=== PATIENT | male | born 1975 | race Caucasian/White ===

== ENCOUNTER 2022-01-17 15:25 | Emergency (ER) | payer OTHER ==
[2022-01-17 16:53] LABS: BILIRUBIN NEGATIVE (NEGATIVE); BLOOD NEGATIVE Ery/uL (NEGATIVE); CLARITY CLEAR (CLEAR); COLOR YELLOW (YELLOW); GLUCOSE (U) NORMAL (NORMAL); LEUKOCYTES NEGATIVE Leu/uL (NEGATIVE); NITRITE NEGATIVE (NEGATIVE); PROTEIN NEGATIVE (NEGATIVE); SPECIFIC GRAVITY >=1.030 (1.001-1.030); UROBILINOGEN 0.2 mg/dL (0.2-1.0)
[2022-01-17 17:02] LABS: EOSINOPHIL 2.4 % (0-5); LYMPHOCYTE 28.6 % (15-48); MCH 30.8 pg (25.0-31.0); MCHC 33.3 g/dL (32.0-36.0); MCV 92.3 fL (78.0-100.0); MONOCYTE 8.3 % (0-12); MPV 10.2 fL (6.0-9.5); NEUTROPHIL 59.3 % (41-80); NRBC 0; PLT 249 K/uL (150-400); RBC 5.85 M/uL (4.70-6.00); RDW 12.9 % (11.5-14.0); WBC 9.4 K/uL (4.0-10.5)
[2022-01-17 17:10] LABS: ALBUMIN 4.1 g/dL (3.4-5.0); BILIRUBIN - TOTAL 0.4 mg/dL (0.2-1.0); BUN/CREAT RATIO (CALC) 16.3 RATIO; CREATININE 0.92 mg/dL (0.67-1.17); GLOBULIN (CALCULATION) 3.3 g/dL; TOTAL PROTEIN 7.4 g/dL (6.4-8.2)
[2022-01-17] MEDS ORDERED: BACLOFEN 10MG T10 MG PO (19:02)
[2022-01-17] MEDS ORDERED: IBUPROFEN800 MG PO (19:02)
== END 2022-01-17 19:09 | disposition home or self-care (01) ==
LOC: FER 15:25
PROVIDERS: Nurse Practitioner Family
DX: R10.84 Generalized abdominal pain (principal); J45.909 Unspecified asthma, uncomplicated; F17.210 Nicotine dependence, cigarettes, uncomplicated; Z28.310 Unvaccinated for COVID-19; Z88.0 Allergy status to penicillin; Z88.8 Allergy status to other drugs, medicaments and biological substances
CPT/HCPCS: 36415; 80053; 81003; 85025; J1885; J2405; J7030; Q9967

== ENCOUNTER 2022-03-03 18:34 | Emergency (ER) | payer OTHER ==
[~2022-03-03 18:34] MED LIST: BACLOFEN 10MG T10 MG PO; IBUPROFEN800 MG PO
[2022-03-03 19:06] LABS: BASOPHIL 0.8 % (0-2); EOSINOPHIL 3.5 % (0-5); HCT 48.7 % (42.0-52.0); HGB 16.4 g/dl (13.2-18.0); LYMPHOCYTE 34.2 % (15-48); MCH 30.9 pg (25.0-31.0); MCHC 33.7 g/dL (32.0-36.0); MCV 91.7 fL (78.0-100.0); MONOCYTE 7.3 % (0-12); MPV 10.6 fL (6.0-9.5); NEUTROPHIL 53.8 % (41-80); NRBC 0; PLT 191 K/uL (150-400); RBC 5.31 M/uL (4.70-6.00); RDW 13.2 % (11.5-14.0); WBC 7.6 K/uL (4.0-10.5)
[2022-03-03 19:15] LABS: BILIRUBIN NEGATIVE (NEGATIVE); BLOOD NEGATIVE Ery/uL (NEGATIVE); CLARITY CLEAR (CLEAR); COLOR YELLOW (YELLOW); GLUCOSE (U) NORMAL (NORMAL); LEUKOCYTES NEGATIVE Leu/uL (NEGATIVE); NITRITE NEGATIVE (NEGATIVE); PROTEIN NEGATIVE (NEGATIVE); SPECIFIC GRAVITY >=1.030 (1.001-1.030); UROBILINOGEN 0.2 mg/dL (0.2-1.0)
[2022-03-03 19:28] LABS: ALBUMIN 3.8 g/dL (3.4-5.0); BILIRUBIN - TOTAL 0.2 mg/dL (0.2-1.0); BUN/CREAT RATIO (CALC) 13.3 RATIO; CREATININE 0.83 mg/dL (0.67-1.17); POTASSIUM 3.8 mmol/L (3.5-5.1); TOTAL PROTEIN 6.8 g/dL (6.4-8.2)
[2022-03-03 21:02] LABS: CORONAVIRUS 2019 SARS-COV-2 NEGATIVE (NEGATIVE); INFLUENZA A NAA NEGATIVE (NEGATIVE)
[2022-03-03] MEDS ORDERED: NORCO 5-325 TA1 EACH PO (22:03)
[2022-03-03] MEDS ORDERED: ONDANSETRON ODT4 MG PO (22:03)
== END 2022-03-03 22:17 | disposition home or self-care (01) ==
LOC: FER 18:34
PROVIDERS: Nurse Practitioner Family
DX: R10.11 Right upper quadrant pain (principal); I10 Essential (primary) hypertension; Z20.822 Contact with and (suspected) exposure to COVID-19
CPT/HCPCS: 36415; 80053; 81003; 85025; J2270; J2405; J7030; Q9967; U0002